=== PATIENT | female | born 1975 | race Two or more races ===

== ENCOUNTER 2018-07-24 07:16 | Emergency (ER) | payer BC, OTHER ==
[~2018-07-24] VITALS: Ht 154.9 cm; Wt 87.6 kg
[2018-07-24] MEDS ORDERED: HYDROmorphone 1 MG/ML, 1ML ONE ×2 (07:41→08:38)
[2018-07-24] MEDS ORDERED: ONDANSETRON 2MG/ML, 2ML ONE (07:41)
--- NOTE | 2018-07-24 07:52 | NUR ---
Pt to ER for L flank pain & hematuria onset last night. Pain 7/10, unable to find position of comfort. Pt has hx of kidney stones & states this feels same as past episode. Urine collected & sent, IV est, labs drawn & pt medicated as per emar. Placed on continuous NIBP & SPO2 monitoring. Pt & family @ BS aware of POC.
[2018-07-24] MEDS ORDERED: SODIUM CHLORIDE FLUSH 10ML SYR IVF ONE (08:00)
[2018-07-24] MEDS ORDERED: ONDANSETRON 2MG/ML, 2ML IVPush ONE (08:00)
[2018-07-24] MEDS ORDERED: HYDROmorphone 2 MG/ML, 1ML IVPush PRN (08:00)
[2018-07-24] MEDS ORDERED: HYDR25TA6 PO (08:06)
[2018-07-24] MEDS ORDERED: RANI150C PO (08:06)
[2018-07-24] MEDS ORDERED: AMLO10TA4 PO (08:06)
[2018-07-24 08:11] LABS: BASOPHILS # (AUTO) 0.03 x10^3/uL (0-0.1); BASOPHILS % (AUTO) 0 % (0-1); EOSINOPHILS # (AUTO) 0.07 x10^3/uL (0-0.4); EOSINOPHILS % (AUTO) 1 % (1-7); LYMPHOCYTES # (AUTO) 1.55 x10^3/uL (1-3.4); LYMPHOCYTES % (AUTO) 19 % (22-44); MD NO; MEAN CORPUSCULAR HEMOGLOBIN 29.5 pg (27.0-34.8); MEAN CORPUSCULAR HGB CONC 33.5 g/dL (32.4-35.8); MEAN PLATELET VOLUME 7.7 fL (7.4-10.4); MONOCYTES # (AUTO) 0.33 x10^3/uL (0.2-0.8); MONOCYTES % (AUTO) 4 % (2-9); NEUTROPHILS # (AUTO) 6.22 x10^3/uL (1.8-6.8); NEUTROPHILS % (AUTO) 76 % (42-75); PLATELET COUNT 452 x10^3/uL (130-400); RED BLOOD COUNT 5.16 x10^6/uL (3.82-5.3); RED CELL DISTRIBUTION WIDTH 12.8 % (9.6-15.2)
--- NOTE | 2018-07-24 08:15 | NUR ---
Pain 3/10, no nausea. Resting comfortably, family @ BS. Aware of POC.
[2018-07-24 08:24] LABS: ALANINE AMINOTRANSFERASE 89 U/L (12-78); ALBUMIN 4.1 g/dL (3.4-5.0); ANION GAP 10 mmol/L (5-15); CALCIUM 8.9 mg/dL (8.5-10.1); CHLORIDE 103 mmol/L (98-107)
[2018-07-24 08:26] LABS: ALKALINE PHOSPHATASE 57 U/L (45-117); BILIRUBIN,TOTAL 0.4 mg/dL (0.2-1.0); TOTAL PROTEIN 8.3 g/dL (6.4-8.2)
--- NOTE | 2018-07-24 08:41 | NUR ---
Pain returned 8/10, no nausea. Will repeat pain meds.
[2018-07-24 08:53] LABS: CULTURE INDICATED? YES; MICROSCOPIC INDICATED
--- NOTE | 2018-07-24 09:00 | NUR ---
Pain 2/10. Resting comfortably, VSS.
--- NOTE | 2018-07-24 09:23 | NUR ---
CT abd/pelvis ordered, pt updated.
--- NOTE | 2018-07-24 09:26 | NUR ---
To CT via [facility]
--- NOTE | 2018-07-24 09:51 | NUR ---
Back from CT, pain free at this time. Awaiting results.
--- NOTE | 2018-07-24 09:53 | NUR ---
REPORT RECEIVED FROM AILYN WONG. ASSUMED CARE OF PT. PT CURRENTLY RESTING ON GURNEY. NAD NOTED. SKIN PWD. RESP EVEN AND EQAUL. CALL LIGHT WITHIN REACH. WILL CONT TO MONITOR PT.
[2018-07-24 10:55] LABS: MICROSCOPIC INDICATED
--- NOTE | 2018-07-24 10:55 | NUR ---
CATH UA SAMPLE OBTAINED FROM PT AND WALKED TO LAB. PT CURRENTLY RESTING ON GURNEY. NAD NOTED. SKIN WARM AND DRY. RESP EVEN AND EQAUL. PT CURRENTLY DENIES PAIN. PT AWARE WE ARE WAITING FOR UA RESULTS TO DETERMINE POC. FAMILY AT BEDSIDE. CALL LIGHT WITHIN REACH. WILL CONT TO MONITOR PT.
[2018-07-24 10:56] LABS: CULTURE INDICATED? YES
[2018-07-24 12:43] VITALS: BP 120/81
== END 2018-07-24 12:45 | disposition home or self-care (01) ==
LOC: ED 10:28
DX: N13.2 Hydronephrosis with renal and ureteral calculous obstruction (principal); I10 Essential (primary) hypertension
CPT/HCPCS: 36415; 74176; 80053; 81001; 81025; 83605; 83690; 85025; 87040; 87086; 96374; 96375; 99284; J1170; J2405

== ENCOUNTER 2019-06-03 01:42 | Emergency (ER) | payer SELFPAY ==
[~2019-06-03] VITALS: Ht 154.9 cm; Wt 89.5 kg
[~2019-06-03 01:42] MED LIST: AMLO10TA4 PO; HYDR25TA6 PO; RANI150C PO
[2019-06-03] MEDS ORDERED: MORPHINE SULFATE 4 MG/ML, 1ML IVPush ONE (02:00)
[2019-06-03] MEDS ORDERED: KETOROLAC 30 MG/1 ML IVPush ONE (02:00)
[2019-06-03 02:09] LABS: BASOPHILS # (AUTO) 0.04 x10^3/uL (0-0.1); BASOPHILS % (AUTO) 0 % (0-1); EOSINOPHILS # (AUTO) 0.08 x10^3/uL (0-0.4); EOSINOPHILS % (AUTO) 1 % (1-7); LYMPHOCYTES # (AUTO) 1.31 x10^3/uL (1-3.4); LYMPHOCYTES % (AUTO) 13 % (22-44); MD NO; MEAN CORPUSCULAR HEMOGLOBIN 30.6 pg (27.0-34.8); MEAN CORPUSCULAR HGB CONC 33.5 g/dL (32.4-35.8); MEAN CORPUSCULAR VOLUME 91.3 fL (80-100); MEAN PLATELET VOLUME 7.4 fL (7.4-10.4); MONOCYTES # (AUTO) 0.55 x10^3/uL (0.2-0.8); MONOCYTES % (AUTO) 5 % (2-9); NEUTROPHILS # (AUTO) 8.43 x10^3/uL (1.8-6.8); NEUTROPHILS % (AUTO) 81 % (42-75); PLATELET COUNT 366 x10^3/uL (130-400); RED BLOOD COUNT 5.09 x10^6/uL (3.82-5.3); RED CELL DISTRIBUTION WIDTH 12.6 % (9.6-15.2)
[2019-06-03] MEDS ORDERED: ONDANSETRON 2MG/ML, 2ML ONE (02:10)
--- NOTE | 2019-06-03 02:17 | NUR ---
PT WITH LLQ ABD PAIN AND LEFT FLANK PAIN THAT STARTED 06/02 AROUND NOON AND HAS WORSENED. PT STATES PAIN IS INTERMITTANT AND WAVE LIKE IN QUALITY. RATED PAIN 6/10. HX OF KIDNEY STONES. +NAUSEA, DENIES VOMITTING OR URINARY SYMTPOMS. PIV PLACED, BLOOD DRAWN AND URINE SENT TO LAB. NO ACUTE DISTRESS. BLANKET PROVIDED.
[2019-06-03 02:19] LABS: MICROSCOPIC AUTO
[2019-06-03 02:20] LABS: ANION GAP 8 mmol/L (5-15); CALCIUM 8.6 mg/dL (8.5-10.1); CHLORIDE 104 mmol/L (98-107); CREATININE 0.96 mg/dL (0.55-1.02)
--- NOTE | 2019-06-03 02:20 | NUR ---
PT MEDICATED FOR NAUSEA AND OFFERED PAIN MEDICATIONS BUT PT STATES SHE DOES NOT WANT PAIN MEDS AT THIS TIME.
[2019-06-03 02:26] LABS: CULTURE INDICATED? NO
[2019-06-03] MEDS ORDERED: ONDANSETRON 2MG/ML, 2ML IVPush ONE (02:30)
[2019-06-03 03:22] VITALS: BP 120/79
[2019-06-03] MEDS ORDERED: KETOROLAC 30 MG/1 ML ONE (03:23)
== END 2019-06-03 03:42 | disposition home or self-care (01) ==
LOC: ED 03:10
DX: N13.2 Hydronephrosis with renal and ureteral calculous obstruction (principal); I10 Essential (primary) hypertension
CPT/HCPCS: 36415; 74176; 80048; 81001; 83690; 85025; 96374; 96375; 99284; J1885; J2405